=== PATIENT | male | born 1970 | race Caucasian/White ===

== ENCOUNTER 2018-03-09 12:16 | Emergency (ER) | payer SELFPAY ==
[~2018-03-09] VITALS: Ht 182.9 cm; Wt 95.5 kg
[2018-03-09 12:30] VITALS: Ht 182.9 cm; Wt 95.5 kg
[2018-03-09] MEDS ORDERED: ZESTRIL10 MG PO (12:31)
[2018-03-09] MEDS ORDERED: CYCLOBENZAPRINE10 MG PO (15:12)
[2018-03-09 15:31] VITALS: BP 136/78
== END 2018-03-09 15:32 | disposition home or self-care (01) ==
LOC: D.ER 12:16
DX: G44.209 Tension-type headache, unspecified, not intractable (principal); G43.809 Other migraine, not intractable, without status migrainosus